=== PATIENT | female | born 1960 | race Caucasian/White ===

== ENCOUNTER 2017-03-25 05:55 | Day surgery (SDC) | payer BC ==
--- NOTE | 2017-03-19 23:58 | HP ---
PREOPERATIVE HISTORY AND PHYSICAL: DATE OF ADMISSION: 03/25/17 PROVIDER: Drew Mora MD * (DICTATED BY ZAIDA VIDAL) CHIEF COMPLAINT: Right foot pain. HISTORY OF PRESENT ILLNESS: Talia is a 56-year-old male, who has been followed by Dr. Mora for continued pain in the right first MTP joint. She states that initially the pain was on and off; however, it seems to be more persistent and has begun to limit her activity. She has tried wearing a carbon fiber insert in her sneaker, which has helped some, but with any other shoe, she has significant discomfort. The pain is mostly over the dorsum of the first MTP joint and she complains of limited range of motion. She has not had any injury. She denies paresthesias or numbness. She is interested in surgical intervention for correction of the problem. PAST MEDICAL HISTORY: Hyperlipidemia and anxiety. PAST SURGICAL HISTORY: Colonoscopy, hysterectomy, lumpectomy of left breast, left rotator cuff repair, spontaneous pneumothorax, anal fissure. She reports no complications with any of these procedures. CURRENT MEDICATIONS: 1. Fish oil supplement. 2. Crestor 5 mg p.o. daily. 3. Cymbalta 60 mg p.o. daily. 4. Vitamin D3 1000 units p.o. daily. 5. Colace 100 mg p.o. daily. 6. Calcium 1000 plus D once daily. ALLERGIES: PENICILLIN, CECLOR, PROVIGIL, certain FRAGRANCES, HYDROCODONE, OXYCODONE and DILAUDID. FAMILY HISTORY: Positive for heart trouble and diabetes. SOCIAL HISTORY: She lives with her spouse. 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 She denies tobacco use. She denies alcoholic beverage use. She does exercise regularly. REVIEW OF SYSTEMS: Constitutional: Negative for recent hospitalizations, fevers, chills, night sweats, or unexplained weight loss. HEENT: Negative for changes to her hearing or vision, frequent headaches, lightheadedness, or balance problems. Cardiovascular: Negative for chest or arm pain with exertion , history of heart attack, heart murmur, and heart palpitations. Negative high blood pressure. Respiratory: Negative for shortness of breath, chronic cough, asthma, or COPD. Gastrointestinal: Negative for nausea, vomiting, or diarrhea. Positive for constipation. Genitourinary: Negative for pain with urination, urinary tract infections, or kidney problems. Musculoskeletal: Negative for recent fracture, chronic back pain, or neck pain. Neurologic: Negative for history of seizure, stroke, or epilepsy. Endocrine: Negative for diabetes or thyroid problem. Hematology: Negative for easy bleeding, bruising, anemia, or history of DVT. She reports no complications with anesthesia. PHYSICAL EXAMINATION GENERAL: She is a well-developed, well-nourished, pleasant female, in no acute distress at rest. She is alert and oriented x3 with appropriate mood and affect. VITAL SIGNS: She is 5 feet 2 inches, 131 pounds. Blood pressure 103/65, pulse 76, respirations 15, temperature 97.9. HEENT: Normocephalic, atraumatic. Her hearing and vision are grossly intact. NECK: Her trachea is midline. RESPIRATORY: Lungs clear to auscultation bilaterally. No wheezes, rales, or rhonchi. CARDIOVASCULAR: Regular rate and rhythm. No murmurs, rubs, or gallops. Normal S1, S2. ABDOMEN: Soft, nondistended, nontender. Normal bowel sounds. EXTREMITIES: Exam of the right lower extremity, skin is intact without abrasions or open wounds. There is no edema or ecchymosis. She has tenderness to palpation over the dorsal aspect of the first MTP joint and there is a palpable dorsal osteophyte in this area. She has about a 15-degree arc of range of motion passively. She has pain with end range of passive dorsiflexion at the first MTP joint. Her sensation to light touch is intact. She has a 2+ dorsalis pedis pulse. DIAGNOSTIC STUDIES: Imaging: AP, lateral and oblique views of the right foot were reviewed and show a large dorsal osteophyte at the first MTP joint with some mild joint space narrowing. There is normal joint alignment and no incongruity. There is no acute fracture. IMPRESSION: Hallux rigidus of the right foot. PLAN: The patient is to undergo right foot first metatarsophalangeal joint cheilectomy by Dr. Mora on 03/25/17. The risks, benefits, and postoperative course were discussed with the patient at length and she would like to proceed. A prescription for tramadol was sent to her pharmacy for postoperative pain. All of her questions were answered to her full satisfaction. She has understanding to call should she develops any problems or concerns. ZAIDA VIDAL [id number]/[facility] #: [id number] [facility]S HOSPITALClaude
[~2017-03-25 05:55] MED LIST: Buffered Lidocaine 0.9% SYRIN* 5 ML/SYR SYRINGE ONE; Clindamycin 900 MG IVPREMIX(* 900 MG/50 ML SDV IV ONE; Famotidine IV* 10 MG/ML 2 ML (20 mg) ONE; PROCHLORPERAZINE INJ 5 MG/ML 2 ML VIAL IV PRN; fentaNYL* 50 MCG/ML 2 ML VIAL (100 MCG VIAL) IV PRN
[2017-03-25] MEDS ORDERED: Buffered Lidocaine 0.9% SYRIN* 5 ML/SYR SYRINGE INTRADERM ONE (06:00)
[2017-03-25] MEDS ORDERED: Famotidine IV* 10 MG/ML 2 ML (20 mg) IV ONE (06:00)
[2017-03-25] MEDS ORDERED: Lidocaine 2% PF* 10 ML AMP ONE (07:12)
[2017-03-25] MEDS ORDERED: Bupivacaine 0.5% SDV PF* 30 ML VIAL ONE (07:12)
[2017-03-25] MEDS ORDERED: fentaNYL* 50 MCG/ML 2 ML VIAL (100 MCG VIAL) ONE (07:13)
[2017-03-25] MEDS ORDERED: KETAMINE HCL* 50 MG/ML 10 ML VIAL ONE (07:13)
[2017-03-25] MEDS ORDERED: Midazolam* 1 MG/ML 5 ML VIAL (5 MG) ONE (07:13)
[2017-03-25] MEDS ORDERED: Propofol* 10 MG/ML 20 ML BTL IV PUSH ONE (07:50)
[2017-03-25] MEDS ORDERED: Dexamethasone IV* 4 MG/ML 1 ML (4 MG) ONE (07:50)
[2017-03-25] MEDS ORDERED: Ondansetron INJ* 2 MG/ML VIAL ONE (07:50)
[2017-03-25] MEDS ORDERED: Ketorolac INJ* 30 MG/ML 1 ML VIAL ONE (07:50)
[2017-03-25] MEDS ORDERED: PROCHLORPERAZINE INJ 5 MG/ML 2 ML VIAL ONE (07:50)
[2017-03-25] MEDS ORDERED: Phenylephrine IV* 40 MCG/ML 10 ML SYRINGE ONE (07:50)
[2017-03-25] MEDS ORDERED: Lidocaine 2% PF * 5 ML VIAL ONE (07:50)
[2017-03-25] MEDS ORDERED: EPHEDrine (Pressors)* 50 MG/ML VIAL ONE (07:50)
[2017-03-25 10:31] VITALS: BP 121/61
--- NOTE | 2017-03-26 01:02 | OP ---
DATE OF OPERATION: 03/25/17 - SDS DATE OF : 62 SURGEON: Drew Mora MD PACKAGING DESIGN ENGINEER: Josefa Hartmann PA-C ANESTHESIOLOGIST: Demetrius Gutierrez MD ANESTHESIA: General PRE-OP DIAGNOSIS: Right hallux rigidus. POST-OP DIAGNOSIS: Right hallux rigidus with some central cartilage loss. OPERATIVE PROCEDURE: Cheilectomy and drilling of subchondral bone, right first MTP joint. DESCRIPTION OF PROCEDURE: The patient was taken to the operating room where longitudinal incision was made over the first MTP joint. Medial lateral flap was raised to allow visualization of the dorsum of the MTP joint. We used a microsagittal saw to remove the dorsal osteophytes from the metatarsal head and a rongeur to remove the dorsal osteophyte of the proximal phalanx. There was about a 30% loss of full-thickness cartilage of the metatarsal head, more in the lateral 50%. This was drilled with a 0.032 C-wire. We then irrigated thoroughly closing the capsule with 3-0 Vicryl, 4-0 nylon for the skin, and a compression dressing applied. [id number]/[facility] #: [id number] MTDD
== END 2017-03-25 11:03 | disposition home or self-care (01) ==
LOC: OR 05:55
PROVIDERS: ATTEND Orthopaedic Surgery
DX: M20.21 Hallux rigidus, right foot (principal); E78.5 Hyperlipidemia, unspecified; F41.9 Anxiety disorder, unspecified
CPT/HCPCS: C1776; J0780; J1100; J1885; J2001; J2250; J2405; J2704; J3010